=== PATIENT | female | born 1975 | race Caucasian/White ===

== ENCOUNTER → 2017-08-08 | Outpatient (CLI) | payer OTHER | LOC: BMCIMAGING 12:56 | PROVIDERS: ATTEND Physician Assistant | DX: Z12.31 Encounter for screening mammogram for malignant neoplasm of breast (principal) | CPT/HCPCS: G0202 ==

== ENCOUNTER → 2018-09-06 | Outpatient (CLI) | payer OTHER | LOC: BMCIMAGING 13:20 | PROVIDERS: ATTEND Internal Medicine | DX: Z12.31 Encounter for screening mammogram for malignant neoplasm of breast (principal) ==

== ENCOUNTER → 2018-09-20 | Outpatient (CLI) | payer OTHER | LOC: BRMIMAGING 14:43 | PROVIDERS: ATTEND Preventive Medicine Occupational Medicine | DX: S82.52XA Displaced fracture of medial malleolus of left tibia, initial encounter for closed fracture (principal) | CPT/HCPCS: 73610-PO ==